=== PATIENT | male | born 1955 | race Caucasian/White ===

== ENCOUNTER 2018-07-08 08:32 | Day surgery (SDC) | payer OTHER ==
[~2018-07-08 08:32] MED LIST: LIDOCAINE HCL 1% MPF 30 SOL ONE; PROPOFOL 500 MG/50 ML EMU IV ONE
[2018-07-08 08:51] VITALS: TEMP 96.8
[2018-07-08 11:22] VITALS: O2SAT 97
[2018-07-08 11:36] VITALS: BP 147/93; PULSE 60; RESP 18
== END 2018-07-08 12:12 | disposition home or self-care (01) ==
LOC: SURG 08:32
PROVIDERS: ATTEND Internal Medicine Gastroenterology
DX: Z12.11 Encounter for screening for malignant neoplasm of colon (principal); Z80.0 Family history of malignant neoplasm of digestive organs; Z86.010 Personal history of colon polyps; K57.32 Diverticulitis of large intestine without perforation or abscess without bleeding; K64.8 Other hemorrhoids; D12.2 Benign neoplasm of ascending colon; D12.5 Benign neoplasm of sigmoid colon; K62.1 Rectal polyp
CPT/HCPCS: 99001; J2001; J2704